=== PATIENT | male | born 1950 | race Two or more races ===

== ENCOUNTER 2017-09-07 15:17 | Outpatient (CLI) | payer OTHER ==
[~2017-09-07 15:17] MED LIST: BREO ELLIPTA I1 EACH; CATAFLAN PO; HYZAAR 100-251 UDTAB PO; HYZAAR 50-12.1 UDTAB; LIPITOR20 MG; PERCOCET 5/3251 TAB PO; [UNRECOGNIZED DRUG - OTHER]
== END 2017-09-07 16:42 | disposition home or self-care (01) ==
LOC: RAD 15:17
DX: I10 Essential (primary) hypertension (principal)

== ENCOUNTER 2017-12-02 12:26 | Outpatient (CLI) | payer OTHER | END 2017-12-02 14:38 | disposition home or self-care (01) | LOC: RAD 12:26 | DX: M25.561 Pain in right knee (principal); I10 Essential (primary) hypertension ==

== ENCOUNTER 2020-06-05 11:51 | Outpatient (CLI) | payer OTHER | END 2020-06-05 12:06 | disposition home or self-care (01) | LOC: RAD 11:51 | PROVIDERS: ATTEND Specialist | DX: I10 Essential (primary) hypertension (principal) ==

== ENCOUNTER 2021-02-22 08:17 | Outpatient (CLI) | payer OTHER | END 2021-02-22 10:08 | disposition home or self-care (01) | LOC: TOM 08:17 | PROVIDERS: ATTEND Specialist | DX: R04.0 Epistaxis (principal) ==

== ENCOUNTER 2021-09-25 09:58 | Emergency (ER) | payer OTHER ==
[~2021-09-25] VITALS: Ht 165.1 cm; Wt 106.6 kg
[2021-09-25] MEDS ORDERED: COZAAR25 MG PO (10:17)
[2021-09-25] MEDS ORDERED: LEVOCETIRIZINE D5 MG PO (10:17)
[2021-09-25] MEDS ORDERED: LOSARTAN POTASS50 MG PO (10:18)
[2021-09-25] MEDS ORDERED: GLUMETZA500 MG (10:18)
[2021-09-25] MEDS ORDERED: TENORMIN25 MG (10:18)
== END 2021-09-25 21:51 | disposition home or self-care (01) ==
LOC: ER 09:58
DX: R42 Dizziness and giddiness (principal); R00.1 Bradycardia, unspecified; E11.9 Type 2 diabetes mellitus without complications; I10 Essential (primary) hypertension

== ENCOUNTER 2023-03-01 17:29 | Emergency (ER) | payer OTHER ==
[~2023-03-01] VITALS: Ht 165.1 cm; Wt 98.9 kg
[~2023-03-01 17:29] MED LIST changes: +COZAAR25 MG PO; +GLUMETZA500 MG; +LEVOCETIRIZINE D5 MG PO; +LOSARTAN POTASS50 MG PO; +TENORMIN25 MG
[2023-03-01 19:04] LABS: HEMATOCRIT 41.8 % (39.0-48.0); HEMOGLOBIN 13.7 g/dL (13-16.00); MEAN CELL VOLUME 92.1 fL (80.0-100.00); MEAN CORPUSCULAR HEMOGLOBIN 30.1 pg (27.00-32.0); MEAN CORPUSCULAR HGB CONC 32.7 g/dl (32.0-36.0); PLATELET COUNT 164 K/uL (150-450); RED BLOOD COUNT 4.54 M/uL (4.00-6.00); RED CELL DISTRIBUTION WIDTH 14.8 % (11.5-14.5)
== END 2023-03-01 19:38 | disposition home or self-care (01) ==
LOC: ER 17:29
PROVIDERS: General Practice
DX: L03.116 Cellulitis of left lower limb (principal); Z88.6 Allergy status to analgesic agent; I10 Essential (primary) hypertension; R73.03 Prediabetes; B35.4 Tinea corporis
CPT/HCPCS: 36415; 96372; 99284; J3490

== ENCOUNTER → 2024-07-18 08:41 | Outpatient (CLI) | payer OTHER | END | disposition home or self-care (01) | LOC: NUCLEAR 08:41 | PROVIDERS: ATTEND Internal Medicine Cardiovascular Disease | DX: I42.9 Cardiomyopathy, unspecified (principal) ==

== ENCOUNTER 2024-08-15 11:14 | Emergency (ER) | payer OTHER ==
[~2024-08-15] VITALS: Ht 165.1 cm; Wt 97.5 kg
[2024-08-15 12:04] VITALS: BP 154/72; O2SAT 99
[2024-08-15] MEDS ORDERED: MONODOX100 MG (12:04)
[2024-08-15 14:41] LABS: HEMOGLOBIN 14.5 g/dL (13-16.00); MEAN CELL VOLUME 89.8 fL (80.0-100.00); MEAN CORPUSCULAR HEMOGLOBIN 30.3 pg (27.00-32.0); MEAN CORPUSCULAR HGB CONC 33.8 g/dl (32.0-36.0); PLATELET COUNT 141 K/uL (150-450); RED BLOOD COUNT 4.79 M/uL (4.00-6.00); RED CELL DISTRIBUTION WIDTH 14.1 % (11.5-14.5)
[2024-08-15 15:47] LABS: ALBUMIN 3.8 gm/dL (3.4-5.0); BILIRUBIN TOTAL 0.58 mg/dL (0.3-1.2); CALCIUM 9.3 mg/dL (8.5-10.1); CREATININE SERUM 0.81 mg/dL (0.70-1.30); GFR 93.15; GLOBULINA 3.2 G/DL (2.4-3.5); POTASSIUM 3.83 mEq/L (3.5-5.1)
== END 2024-08-15 18:31 | disposition home or self-care (01) ==
LOC: ER 11:15
PROVIDERS: Preventive Medicine Public Health & General Preventive Medicine
DX: I87.2 Venous insufficiency (chronic) (peripheral) (principal); Z88.6 Allergy status to analgesic agent; Z87.09 Personal history of other diseases of the respiratory system; I10 Essential (primary) hypertension; E11.9 Type 2 diabetes mellitus without complications; Z79.84 Long term (current) use of oral hypoglycemic drugs; Z85.46 Personal history of malignant neoplasm of prostate; G47.30 Sleep apnea, unspecified; R60.0 Localized edema

== ENCOUNTER 2025-03-15 09:32 | Outpatient (CLI) | payer OTHER ==
[~2025-03-15 09:32] MED LIST changes: +MONODOX100 MG
== END 2025-03-15 09:33 | disposition home or self-care (01) ==
LOC: NUCLEAR 09:32
DX: I73.9 Peripheral vascular disease, unspecified (principal)